=== PATIENT | female | born 1970 | race Caucasian/White ===

== ENCOUNTER 2016-09-07 14:10 | Emergency (ER) | payer OTHER ==
[2016-09-07 14:15] VITALS: BP 127/79; BMI 24.1
[2016-09-07 14:54] LABS: BILIRUBIN,URINE NEGATIVE (NEGATIVE); BLOOD/HEMOGLOBIN,URINE 3+ (NEGATIVE); GLUCOSE, URINE NEGATIVE (NEGATIVE); KETONES,URINE NEGATIVE (NEGATIVE); LEUKOCYTE ESTERASE ,URINE 1+ (NEGATIVE); NITRITES,URINE NEGATIVE (NEGATIVE); PROTEIN,URINE 1+ (NEGATIVE); UROBILINOGEN,URINE 1+ (NORMAL)
[2016-09-07] MEDS ORDERED: TORADOL 60 MG VIAL IM ONE (14:59)
[2016-09-07] MEDS ORDERED: PHENERGAN INJ 25 MG IM ONE (14:59)
--- NOTE | 2016-09-07 15:05 | DR.GENAD ---
HPI - PCP Primary Care Physician: alissa proctor - Complaint/Symptoms Chief Complaint Doctors Comments: Patient states she is having right CVA pain for the past two hours. States she has a history of kidney stones. SHe has blood in her urine but denies dysuria, lauren or vaginal bleeding. states she has had a hysterectory Chief Complaint:: patient has a history of kidney stones and she stated that her right flank has been hurting like a kidney stone. - Nurses notes reviewed Nurses Notes Review: Yes - Source History Provided: Patient - Mode of Arrival Mode of Arrival: Ambulatory - Timing Onset of Chief Complaint: 09/07/16 - Duration Duration: Constant How lon Duration: Hours - Location Location: right CVA pain - Severity Severity: Moderate, Severe - Modifying Factors Worsens:: movment Improves:: nothing PMH - PMH Past Medical History: Yes Past Medical History: Hypertension, Kidney Stones Past Surgical History: Yes Surgical History: Cholecystectomy, Hysterectomy, Lithotripsy - Family History History of Family Medical Conditions: Yes Family Medical History: [place], Coronary Artery Disease, Hypertension - Social History Does patient currently use any type of tobacco product: Yes Have you used tobacco products in the last 12 months: Yes Type of Tobacco Use: Cigarettes How many years tobacco product used: 13 Does any household member use tobacco: No Alcohol Use: Rarely Do you use any recreational Drugs:: No Lives With: Family Lives Where: Home - infectious screening In the last 2 months have you had wt loss of >10#?: NO Have you had fever, night sweats or hemotysis?: No Have you traveled outside the country in the last 6 months?: No Isolation: Standard ROS - Review of Systems Constitutional: No Symptoms Reported. negative: See HPI, Chills, Diaphoresis, Fever, Malaise, Weakness, Irritable, Fatigue, Loss of Appetite, Other Eyes: No Symptoms Reported ENTM: No Symptoms Reported Respiratoy: No Symptoms Reported. negative: See HPI, Productive Cough, Non- Productive Cough, Moist Cough, Dry Cough, Hacking Cough, Barking Cough, Brassy Cough, Orthopnea, Short of Breath, Stridor, Wheezing, Hemoptysis, Other Cardiovascular: No Symptoms Reported. negative: See HPI, Chest Pain, Edema, Palpitations, Syncope, Cyanosis, Skin Mottling, Other Gastrointestinal/Abdominal: Abdominal Pain, Nausea, Vomiting. negative: No Symptoms Reported, See HPI, Constipation, Diarrhea, Food Intolerance, Other Genitourinary: No Symptoms Reported, Hematuria, Pain. negative: See HPI, Discharge, Dysuria, Frequency, Bleeding, Other Neurological: No Symptoms Reported. negative: See HPI, Anxiety, Depressed, Emotional Problems, Headache, Numbness, Paresthesia, Pre-existing Deficit, Seizure, Tingling, Tremors, Weakness, Dizziness, Problems Walking, Speech Problem, Other Musculoskeletal: No Symptoms Reported Integumentary: No Symptoms Reported. negative: See HPI, Change in Color, Change in Hair/Nails, Dryness, Lesions, Lumps, Rash, Itching, Wound, Bruises, Juandice, Other Hematologic/Lymphatic: No Symptoms Reported Endocrine: No Symptoms Reported Psychiatric: No Symptoms Reported. negative: See HPI, Anxiety, Depression, Hallucinations, Excessive crying, Suicidal, Other PE - Vital Signs Vitals: Temperature 98.9 F Pulse Rate 74 Respiratory Rate 16 Blood Pressure [Left Arm] 126/79 Blood Pressure [Right Arm] 110/67 Blood Pressure 127/79 O2 Sat by Pulse Oximetry 100 - General Limitations: No Limitations General Appearance: Alert, In No Apparent Distress, In Distress (moderate) - Head Head Exam: Normal Inspection, Atraumatic, Normocephalic - Eyes Eye exam: Normal Appearance, PERRL, EOMI. negative: Scleral Icterus, Conjunctival Injection, Nystagmus, Miosis, Mydrasis, Periorbital Swelling, Periorbital Tenderness, Other - ENT ENT Exam: Normal Exam, Normal Oropharynx, Normal External Ear Exam, Mucous Membranes Moist, TM's Normal Bilaterally External Ear Exam: Normal External Inspection TM/Canal Exam: Bilateral Normal Nose Exam: Normal Nose Exam Mouth Exam: Normal Inspection Throat Exam: Normal Inspection - Neck Neck Exam: Normal Inspection, Full ROM, Trachea Midline. negative: Tenderness, Meningismus, Lymphadenopathy, Thyromegaly, Other - Chest Chest Inspection: Normal Inspection, Symmetric Chest Wall Rise - Respiratory Respiratory Exam: Normal Lung Sounds Bilat, Prolonged Expiratory Phase. negative: Accessory Muscle Use, Chest Wall Tenderness, Respiratory Distress, Stridor, Other Respiratory Exam: Bilateral Clear to Auscultation - Cardiovascular Cardiovascular Exam: Regular Rate, Normal Rhythm, Normal Heart Sounds. negative : Bradycardia, Tachycardia, Irregular Rhythm, Systolic Murmur, Diastolic Murmur , Rubs, Gallop, Clicks, JVD, +S1, +S2, +S3, +S4, Other - Abdominal Exam Abdominal Exam: Normal Inspection, Normal Bowel Sounds, Soft. negative: Distention, Tenderness, Guarding, Rebound, Rigidity, Dimnished Bowel Sounds, Hyperactive Bowel Sounds, Hypoactive Bowel Sounds, Organomegaly, Trauma, Incision, Ascites, Mass, Bruit, Pulsatile Mass, Hernia, Other Abdominal Tenderness: RUQ, Suprapubic, Moderate. negative: RLQ, LUQ, LLQ, Epigastrium, Diffuse, Mild, Severe, Other - Extremities Extremities Exam: Normal Inspection, Full ROM, Normal Capillary Refill. negative: Tenderness, Edema, Joint Swelling, Calf Tenderness, Other - Back Back Exam: Normal Inspection, Full ROM. negative: Tenderness, (R) CVA Tenderness, (L) CVA Tenderness, Muscle Spasm, Paraspinal Tenderness, Vertebral Tenderness, Rashes, (R) Sciatic Notch Tenderness, (L) Sciatic Notch Tendern, (R ) Straight Leg Raise, (L) Straight Leg Raise, Other - Neurologic Neurological Exam: Alert, Oriented X3, CN II-XII Intact, Normal Gait, Reflexes Normal - Psychiatric Psychiatric Exam: Normal Affect, Normal Mood - Skin Skin Exam: Warm, Dry, Normal Color. negative: Intact, Rash, Cyanosis, Diaphoresis, Erythema, Pallor, Mottled, Other ROR - Labs Reviewed Laboratory Results Reviewed?: Yes (all x-ray results reviewed and discussed with km) Laboratory: Specimen Type Clean catch urine 09/07/16 14:32 Urine Color Cindy (YELLOW) 09/07/16 14:32 Urine Appearance Clear (CLEAR) 09/07/16 14:32 Urine pH 6.0 (5.0 - 8.0) 09/07/16 14:32 Ur Specific [place] 1.025 (1.000-1.030) 09/07/16 14:32 Urine Protein 1+ (NEGATIVE) 09/07/16 14:32 Urine Glucose (UA) Negative (NEGATIVE) 09/07/16 14:32 Urine Ketones Negative (NEGATIVE) 09/07/16 14:32 Urine Occult Blood 3+ (NEGATIVE) 09/07/16 14:32 Urine Nitrite Negative (NEGATIVE) 09/07/16 14:32 Urine Bilirubin Negative (NEGATIVE) 09/07/16 14:32 Urine Urobilinogen 1+ (NORMAL) 09/07/16 14:32 Ur Leukocyte Esterase 1+ (NEGATIVE) 09/07/16 14:32 Urine RBC 10-15 /HPF (NEGATIVE) 09/07/16 14:32 Urine WBC 0-2 /HPF (NEGATIVE) 09/07/16 14:32 Ur Squamous Epith Cells Many /HPF (NEGATIVE) 09/07/16 14:32 Urine Bacteria Trace /HPF (NEGATIVE) 09/07/16 14:32 Urine Mucus Moderate /HPF (NEGATIVE) 09/07/16 14:32 Urine Yeast Few /HPF (NEGATIVE) 09/07/16 14:32 Ur Culture Indicated? No/not indicated 09/07/16 14:32 - XRAY XRAY Interpreted by: Radiologist (CT abdomen and pelvis: No evidence of kidney stone or hydronephrosis.) - Diagnosis Discharge Problem: History of kidney stones Abdominal pain Qualifiers: Abdominal location: right upper quadrant Qualified Code(s): R10.11 - Right upper quadrant pain Hematuria Qualifiers: Hematuria type: unspecified type Qualified Code(s): R31.9 - Hematuria, unspecified - Discharge Plan Disposition: HOME, SELF-CARE Condition: Stable Prescriptions: Ciprofloxacin HCl [CIPRO 500 MG TAB *] 500 mg PO Q12H #20 tab Ketorolac Tromethamine [Toradol Tab] 10 mg PO Q8H PRN #12 tab PRN Reason: Pain - Follow ups/Referrals Follow ups/Referrals: ALISSA PROCTOR [Primary Care Provider] - 3 days - Instructions Instructions: Kidney Stones, [id number], Hematuria, Adult, Abdominal Pain, Adult, [id number]
[2016-09-07] MEDS ORDERED: PHENERGAN INJ 25 MG ONE (15:07)
[2016-09-07] MEDS ORDERED: TORADOL 60 MG VIAL ONE (15:07)
[2016-09-07 15:20] LABS: APPEARANCE,URINE CLEAR (CLEAR); COLOR,URINE AMBER (YELLOW)
[2016-09-07 15:21] LABS: BACTERIA,URINE TRACE /HPF (NEGATIVE); MUCUS,URINE MODERATE /HPF (NEGATIVE); SQUAMOUS EPITHELIAL CELL,UR MANY /HPF (NEGATIVE); YEAST,URINE FEW /HPF (NEGATIVE)
--- NOTE | 2016-09-07 15:37 | CT ---
HISTORY: Right CVA pain, history of kidney stone Study: CT abdomen and pelvis without IV or oral contrast Comparison: June 15, 2016 Technique: Multiple axial images of the abdomen and pelvis were obtained from the lung bases to the pubic symph ysis without the administration of IV or oral contrast. Coronal and sagittal images are also review ed. Dose reduction techniques utilized automatic exposure control. Findings: The visualized portions of the lung bases are unremarkable. The liver, spleen, pancreas, kidneys, a nd adrenal glands are unremarkable in their CT appearance. The gallbladder is surgically absent. No evidence of kidney stone or hydronephrosis is seen.. No significant mesenteric lymphadenopathy or s tranding can be observed. No free fluid or free air is seen within the abdomen. No bowel wall thic kening or bowel dilatation is present. The appendix is normal. The colon is unremarkable. Specifica lly, there is no diverticulosis noted within the sigmoid colon. Uterus is surgically absent. No adne xal mass or free cul-de-sac fluid is seen. The urinary bladder is grossly unremarkable. there is de generative disc disease with disc space narrowing at L4-5 and L5-S1. There is a vacuum disc at L4-5 IMPRESSION: No evidence of kidney stone or hydronephrosis. Surgically absent gallbladder an uterus. Reported By:
== END 2016-09-07 16:53 | disposition home or self-care (01) ==
LOC: ER 14:19
DX: R10.11 Right upper quadrant pain (principal); R31.9 Hematuria, unspecified; Z87.442 Personal history of urinary calculi
CPT/HCPCS: 74176; 81001; 96372; 99283; J1885; J2550

== ENCOUNTER 2016-11-12 18:02 | Emergency (ER) | payer OTHER ==
[2016-11-12 18:07] VITALS: BP 109/78; BMI 24.1
[2016-11-12 21:06] LABS: BASOPHILS # (AUTO) 0.2 X10^3/uL (0.0-0.1); BASOPHILS % (AUTO) 1.3 % (0.2-1.0); EOSINOPHILS # (AUTO) 0.3 x10^3/uL (0.0-0.2); EOSINOPHILS % (AUTO) 2.7 % (0.9-2.9); HEMATOCRIT 45.3 % (36.0-47.0); HEMOGLOBIN 15.8 g/dL (12.0-16.0); LYMPHOCYTES # (AUTO) 4.6 X10^3/uL (1.3-2.9); LYMPHOCYTES % (AUTO) 37.6 % (21.0-51.0); MEAN CORPUSCULAR HEMOGLOBIN 29.8 pg (27.0-34.0); MEAN CORPUSCULAR HGB CONC 34.9 g/dL (33.0-35.0); MEAN CORPUSCULAR VOLUME 85.4 fL (80.0-100.0); MEAN PLATELET VOLUME 8.9 fL (7.4-11.0); MONOCYTES # (AUTO) 0.9 x10^3/uL (0.3-0.8); MONOCYTES % (AUTO) 7.4 % (0.0-13.0); NEUTROPHILS # (AUTO) 6.3 x10^3/uL (2.2-4.8); PLATELET COUNT 304 X10^3/uL (150.0-450.0); RED BLOOD COUNT 5.31 X10^6/uL (3.5-5.4); RED CELL DISTRIBUTION WIDTH 14.4 % (11.6-16.5); WHITE BLOOD COUNT 12.4 X10^3/uL (3.6-10.0)
[2016-11-12 21:10] LABS: BILIRUBIN,URINE NEGATIVE (NEGATIVE); BLOOD/HEMOGLOBIN,URINE 3+ (NEGATIVE); GLUCOSE, URINE NEGATIVE (NEGATIVE); KETONES,URINE 1+ (NEGATIVE); LEUKOCYTE ESTERASE ,URINE 1+ (NEGATIVE); NITRITES,URINE NEGATIVE (NEGATIVE); PROTEIN,URINE 1+ (NEGATIVE); UROBILINOGEN,URINE 1+ (NORMAL)
[2016-11-12 21:16] LABS: ALANINE AMINOTRANSFERASE 86 Units/L (12-78); ALBUMIN 3.9 g/dL (3.4-5.0); ALKALINE PHOSPHATASE 99 Units/L (46-116); ASPARTATE AMINO TRANSFERASE 39 Units/L (15-37); BLOOD UREA NITROGEN 11 mg/dL (7-18); CARBON DIOXIDE 29.1 mmol/L (21-32); CHLORIDE 102 mmol/L (98-107); CREATININE 0.72 mg/dL (0.55-1.02); SODIUM 139 mmol/L (136-145); TOTAL PROTEIN 7.7 g/dL (6.4-8.2); eGFR BLACK RACES > 60 (>60); eGFR NON BLACK RACES > 60 (>60)
[2016-11-12 21:18] LABS: APPEARANCE,URINE SLIGHTLY HAZY (CLEAR); BACTERIA,URINE TRACE /HPF (NEGATIVE); COLOR,URINE YELLOW (YELLOW); SQUAMOUS EPITHELIAL CELL,UR MANY /HPF (NEGATIVE)
--- NOTE | 2016-11-12 21:21 | DR.GENAD ---
HPI - PCP Primary Care Physician: ATA UNDERWOOD - HPI Comment HPI Comment: NO DYSURIA OR FEVER. TONIGHT PAIN SEVERE. HISTORY KIDNEY STONE. - Complaint/Symptoms Chief Complaint Doctors Comments: BACK PAIN, RIGHT FLANK PAIN TIMES Chief Complaint:: " RIGHT KIDNEY PAIN/KIDNEY STONES, BACK PAIN,THROWING UP, FEVER - Nurses notes reviewed Nurses Notes Review: Yes - Source History Provided: Patient - Mode of Arrival Mode of Arrival: Ambulatory - Timing Onset of Chief Complaint: 11/01/16 Came on: Suddenly - Duration Duration: Intermittent Duration: Days - Severity Severity: Moderate PMH - PMH Past Medical History: Yes Past Medical History: Anxiety, Hypertension, Kidney Stones Past Surgical History: Yes Surgical History: Cholecystectomy, Hysterectomy, Lithotripsy - Family History History of Family Medical Conditions: Yes Family Medical History: [place], Coronary Artery Disease, Hypertension - Social History Does patient currently use any type of tobacco product: Yes Have you used tobacco products in the last 12 months: Yes Type of Tobacco Use: Cigarettes How many years tobacco product used: 15 Does any household member use tobacco: No Alcohol Use: None Do you use any recreational Drugs:: No Lives With: Family Lives Where: Home - infectious screening In the last 2 months have you had wt loss of >10#?: NO Have you had fever, night sweats or hemotysis?: No Have you traveled outside the country in the last 6 months?: No Isolation: Standard ROS - Review of Systems Constitutional: No Symptoms Reported Eyes: No Symptoms Reported ENTM: No Symptoms Reported Respiratoy: No Symptoms Reported Cardiovascular: No Symptoms Reported Gastrointestinal/Abdominal: No Symptoms Reported Genitourinary: Hematuria. negative: Dysuria, Frequency Neurological: No Symptoms Reported Musculoskeletal: Back Pain, Back Integumentary: No Symptoms Reported, Other (RT FLANK PAIN.) Hematologic/Lymphatic: No Symptoms Reported Endocrine: No Symptoms Reported All Other Systems: Reviewed and Negative PE - Vital Signs Vitals: Temperature 98.1 F Pulse Rate 89 Respiratory Rate 18 Blood Pressure [Left Arm] 126/79 Blood Pressure [Right Arm] 110/67 Blood Pressure 109/78 O2 Sat by Pulse Oximetry 100 - General Limitations: No Limitations General Appearance: Alert - Head Head Exam: Normal Inspection - Eyes Eye exam: Normal Appearance - ENT ENT Exam: Normal External Ear Exam External Ear Exam: Normal External Inspection TM/Canal Exam: Bilateral Normal Nose Exam: Normal Nose Exam Mouth Exam: Normal Inspection Throat Exam: Normal Inspection - Neck Neck Exam: Trachea Midline - Chest Chest Inspection: Symmetric Chest Wall Rise - Respiratory Respiratory Exam: Normal Lung Sounds Bilat Respiratory Exam: Bilateral Clear to Auscultation - Cardiovascular Cardiovascular Exam: Regular Rate, Normal Rhythm, Normal Heart Sounds - Abdominal Exam Abdominal Exam: Normal Bowel Sounds, Soft, Tenderness Abdominal Tenderness: RUQ, RLQ, Moderate - Extremities Extremities Exam: Normal Inspection - Back Back Exam: (R) CVA Tenderness - Neurologic Neurological Exam: Alert, Oriented X3 - Psychiatric Psychiatric Exam: Anxious - Skin Skin Exam: Normal Color MDM - Additional Information Additional Information Obtained From: Family - Differential Diagnosis Differential Diagnosis: RIGHT SIDED ABDOMINAL PAIN, BACK PAIN, RIGHT FLANK PAIN Course - Treatment Treatment: SEE ORDERS - Education/Counseling Education/Counseling: Patient, Family, Education Educated On: Treatment, Diagnosis, Needs for Follow Up ROR - Labs Reviewed Laboratory Results Reviewed?: Yes Result Diagrams: 11/12/16 20:57 11/12/16 20:57 Laboratory: WBC 12.4 X10^3/uL (3.6-10.0) H 11/12/16 20:57 RBC 5.31 X10^6/uL (3.5-5.4) 11/12/16 20:57 Hgb 15.8 g/dL (12.0-16.0) 11/12/16 20:57 Hct 45.3 % (36.0-47.0) 11/12/16 20:57 MCV 85.4 fL (80.0-100.0) 11/12/16 20:57 MCH 29.8 pg (27.0-34.0) 11/12/16 20:57 MCHC 34.9 g/dL (33.0-35.0) 11/12/16 20:57 RDW 14.4 % (11.6-16.5) 11/12/16 20:57 Plt Count 304 X10^3/uL (150.0-450.0) 11/12/16 20:57 MPV 8.9 fL (7.4-11.0) 11/12/16 20:57 Neut % 51.0 % (42.0-75.0) 11/12/16 20:57 Lymph % 37.6 % (21.0-51.0) 11/12/16 20:57 [place] % 7.4 % (0.0-13.0) 11/12/16 20:57 Eos % 2.7 % (0.9-2.9) 11/12/16 20:57 Baso % 1.3 % (0.2-1.0) H 11/12/16 20:57 Neut # 6.3 x10^3/uL (2.2-4.8) H 11/12/16 20:57 Lymph # 4.6 X10^3/uL (1.3-2.9) H 11/12/16 20:57 [place] # 0.9 x10^3/uL (0.3-0.8) H 11/12/16 20:57 Eos # 0.3 x10^3/uL (0.0-0.2) H 11/12/16 20:57 Baso # 0.2 X10^3/uL (0.0-0.1) H 11/12/16 20:57 Absolute Nucleated RBC 0.1 /100WBC 11/12/16 20:57 Sodium 139 mmol/L (136-145) 11/12/16 20:57 Corrected Sodium TNP 11/12/16 20:57 Potassium 3.9 mmol/L (3.5-5.1) 11/12/16 20:57 Chloride 102 mmol/L (98-107) 11/12/16 20:57 Carbon Dioxide 29.1 mmol/L (21-32) 11/12/16 20:57 BUN 11 mg/dL (7-18) 11/12/16 20:57 Creatinine 0.72 mg/dL (0.55-1.02) 11/12/16 20:57 Est GFR (MDRD) Af Amer > 60 (>60) 11/12/16 20:57 Est GFR (MDRD) Non-Af > 60 (>60) 11/12/16 20:57 Glucose 95 mg/dL (65-99) 11/12/16 20:57 Calcium 10.0 mg/dL (8.5-10.1) 11/12/16 20:57 Corrected Calcium TNP 11/12/16 20:57 Total Bilirubin 0.30 mg/dL (0.2-1.0) 11/12/16 20:57 AST 39 Units/L (15-37) H 11/12/16 20:57 ALT 86 Units/L (12-78) H 11/12/16 20:57 Alkaline Phosphatase 99 Units/L (46-116) 11/12/16 20:57 Total Protein 7.7 g/dL (6.4-8.2) 11/12/16 20:57 Albumin 3.9 g/dL (3.4-5.0) 11/12/16 20:57 Globulin 3.8 g/dL (2.5-4.5) 11/12/16 20:57 Albumin/Globulin Ratio 1.0 Ratio (1.1-2.1) L 11/12/16 20:57 Specimen Type Clean catch urine 11/12/16 20:48 Urine Color Yellow (YELLOW) 11/12/16 20:48 Urine Appearance Slightly hazy (CLEAR) 11/12/16 20:48 Urine pH 5.0 (5.0 - 8.0) 11/12/16 20:48 Ur Specific [place] 1.025 (1.000-1.030) 11/12/16 20:48 Urine Protein 1+ (NEGATIVE) 11/12/16 20:48 Urine Glucose (UA) Negative (NEGATIVE) 11/12/16 20:48 Urine Ketones 1+ (NEGATIVE) 11/12/16 20:48 Urine Occult Blood 3+ (NEGATIVE) 11/12/16 20:48 Urine Nitrite Negative (NEGATIVE) 11/12/16 20:48 Urine Bilirubin Negative (NEGATIVE) 11/12/16 20:48 Urine Urobilinogen 1+ (NORMAL) 11/12/16 20:48 Ur Leukocyte Esterase 1+ (NEGATIVE) 11/12/16 20:48 Urine RBC 5-10 /HPF (NEGATIVE) 11/12/16 20:48 Urine WBC 0-3 /HPF (NEGATIVE) 11/12/16 20:48 Ur Squamous Epith Cells Many /HPF (NEGATIVE) 11/12/16 20:48 Urine Bacteria Trace /HPF (NEGATIVE) 11/12/16 20:48 Ur Culture Indicated? No/not indicated 11/12/16 20:48 - XRAY XRAY Interpreted by: Radiologist XRAY Findings: REPORT DISCUSS WITH PATIENT. - Diagnosis Discharge Problem: Right flank pain Chronic lower back pain Qualifiers: Back pain laterality: right Sciatica presence: without sciatica Qualified Code( s): M54.5 - Low back pain; G89.29 - Other chronic pain Abdominal pain Qualifiers: Abdominal location: right upper quadrant Qualified Code(s): R10.11 - Right upper quadrant pain - Discharge Plan Disposition: 01 HOME, SELF-CARE Condition: Stable Prescriptions: Ketorolac Tromethamine [Toradol Tab] 10 mg PO TID #15 tab Tramadol HCl 50 mg PO TID #15 tablet - Follow ups/Referrals Follow ups/Referrals: ATA UNDERWOOD [Primary Care Provider] - 3 days - Instructions Instructions: Back Pain, Adult, [id number] Additional Instructions: RETURN TO ED IF WORSE. YOU ALSO HAVE RIGHT FLANK PAIN.
[2016-11-12] MEDS ORDERED: NS 1000 ML 1,000 ML IV ONE (21:23)
[2016-11-12] MEDS ORDERED: TORADOL 30 MG VIAL IVP ONE (21:24)
[2016-11-12] MEDS ORDERED: NS 1000 ML 1,000 ML ONE (21:30)
[2016-11-12] MEDS ORDERED: TORADOL 30 MG VIAL ONE (21:30)
[2016-11-12] MEDS ORDERED: ZOFRAN INJ 4 MG VIAL IVP ONE (21:34)
[2016-11-12] MEDS ORDERED: ZOFRAN INJ 4 MG VIAL ONE (21:35)
[2016-11-12] MEDS ORDERED: DEMEROL INJ IVP ONE (22:22)
--- NOTE | 2016-11-12 22:44 | CT ---
CT abdomen and pelvis without contrast Indication: Back and right flank pain. History of renal stones Comparison: 09/07/2016 Technique: CT images of the abdomen and pelvis were obtained without contrast. Automatic exposure control was utilized. Findings: No acute skeletal abnormality. The lung bases are clear. Previous cholecystectomy is noted. Within noncontrast limitations, the liver, spleen, stomach, duoden um, pancreas, and kidneys demonstrate no acute abnormality. There is a small hiatal hernia the stomac h. There is a stable tiny (1-2 mm) left upper pole renal stone, best seen on the coronal images. No r ight-sided nephrolithiasis. No hydronephrosis. No ureteral stone identified bilaterally. No bowel thi ckening or dilatation of the lower GI tract. The appendix appears normal. Urinary bladder is mostly c ollapsed, but grossly unremarkable. The uterus is absent. No free fluid or adenopathy. There is mild aortoiliac atherosclerosis, without aneurysm. Impression: No etiology for patient's symptoms. Stable tiny nonobstructing left upper pole renal stone. Small hiatal hernia. Reported By:
[2016-11-12] MEDS ORDERED: DEMEROL INJ ONE (22:50)
== END 2016-11-12 23:51 | disposition home or self-care (01) ==
LOC: ER 18:12
DX: R10.11 Right upper quadrant pain (principal); M54.5 Low back pain; G89.29 Other chronic pain; K44.9 Diaphragmatic hernia without obstruction or gangrene
CPT/HCPCS: 36415; 74176; 80053; 81001; 85025; 96365; 96367; 96374; 96375; 99283; A4222; J1885; J2175; J2405

== ENCOUNTER 2017-01-02 23:15 | Emergency (ER) | payer OTHER ==
[2017-01-02 23:29] VITALS: BP 110/70; BMI 26.8
[2017-01-02 23:42] LABS: BILIRUBIN,URINE NEGATIVE (NEGATIVE); BLOOD/HEMOGLOBIN,URINE 5+ (NEGATIVE); GLUCOSE, URINE NEGATIVE (NEGATIVE); KETONES,URINE NEGATIVE (NEGATIVE); LEUKOCYTE ESTERASE ,URINE 1+ (NEGATIVE); NITRITES,URINE NEGATIVE (NEGATIVE); PROTEIN,URINE NEGATIVE (NEGATIVE); UROBILINOGEN,URINE NORMAL (NORMAL)
[2017-01-02 23:53] LABS: APPEARANCE,URINE CLEAR (CLEAR); BACTERIA,URINE NEGATIVE /HPF (NEGATIVE); COLOR,URINE YELLOW (YELLOW); SQUAMOUS EPITHELIAL CELL,UR RARE /HPF (NEGATIVE)
[2017-01-02] MEDS ORDERED: TORADOL 30 MG VIAL IVP ONE (23:59)
[2017-01-03] MEDS ORDERED: NS 1000 ML 1,000 ML ONE (00:01)
[2017-01-03] MEDS ORDERED: TORADOL 30 MG VIAL ONE (00:01)
[2017-01-03] MEDS ORDERED: ZOFRAN INJ 4 MG VIAL ONE (00:01)
[2017-01-03] MEDS ORDERED: ZOFRAN INJ 4 MG VIAL IVP ONE (00:02)
--- NOTE | 2017-01-03 00:02 | DR.GENAD ---
HPI - Complaint/Symptoms Chief Complaint:: PT C/O RT AND LT FLANK PAIN AND BLOODY URINE. ONSET THIS AFTERNOON. PT STATES THAT SHE GETS KIDNEY STONES ONCE A MONTH AND COMES HERE FOR THEM - Source History Provided: Patient - Mode of Arrival Mode of Arrival: Stretcher - Timing Onset of Chief Complaint: 01/02/17 PMH - PMH Past Medical History: Yes Past Medical History: Anxiety, Hypertension, Kidney Stones Past Surgical History: Yes Surgical History: Cholecystectomy, Hysterectomy, Lithotripsy - Family History History of Family Medical Conditions: Yes Family Medical History: [place], Coronary Artery Disease, Hypertension - Social History Do you use any recreational Drugs:: No - infectious screening Have you traveled outside the country in the last 6 months?: No ROS - Review of Systems Eyes: No Symptoms Reported ENTM: No Symptoms Reported Respiratoy: No Symptoms Reported Cardiovascular: No Symptoms Reported Gastrointestinal/Abdominal: No Symptoms Reported Genitourinary: No Symptoms Reported Neurological: No Symptoms Reported Musculoskeletal: No Symptoms Reported Integumentary: No Symptoms Reported Hematologic/Lymphatic: No Symptoms Reported Endocrine: No Symptoms Reported Psychiatric: No Symptoms Reported All Other Systems: Reviewed and Negative PE - Vital Signs Vitals: Temperature 98.2 F Pulse Rate 58 Respiratory Rate 18 Blood Pressure [Left Arm] 126/79 Blood Pressure [Right Arm] 110/67 Blood Pressure 110/70 O2 Sat by Pulse Oximetry 98 - General Limitations: No Limitations General Appearance: Alert, In No Apparent Distress - Head Head Exam: Normal Inspection, Atraumatic - Eyes Eye exam: Normal Appearance, PERRL, EOMI - ENT ENT Exam: Normal Exam External Ear Exam: Normal External Inspection TM/Canal Exam: Bilateral Normal Nose Exam: Normal Nose Exam, Sinus Tenderness Mouth Exam: Normal Inspection Throat Exam: Normal Inspection - Neck Neck Exam: Normal Inspection, Full ROM - Chest Chest Inspection: Normal Inspection, Symmetric Chest Wall Rise - Respiratory Respiratory Exam: Normal Lung Sounds Bilat Respiratory Exam: Bilateral Clear to Auscultation - Cardiovascular Cardiovascular Exam: Regular Rate, Normal Rhythm - Abdominal Exam Abdominal Exam: Normal Inspection, Normal Bowel Sounds - Extremities Extremities Exam: Tenderness - Back Back Exam: (R) CVA Tenderness, (L) CVA Tenderness - Neurologic Neurological Exam: Oriented X3, CN II-XII Intact - Skin Skin Exam: Warm, Dry, Intact Course - Reevaluation 1st: Improved - Education/Counseling Education/Counseling: Patient, Counseling Educated On: Treatment, Diagnosis, Prognosis, Needs for Follow Up ROR - Labs Reviewed Laboratory: Specimen Type Clean catch urine 01/02/17: Urine Color Yellow (YELLOW) 01/02/17: Urine Appearance Clear (CLEAR) 01/02/17: Urine pH 8.0 (5.0 - 8.0) 01/02/17 23: Ur Specific [place] 1.015 (1.000-1.030) 01/02/17: Urine Protein Negative (NEGATIVE) 01/02/17: Urine Glucose (UA) Negative (NEGATIVE) 01/02/17: Urine Ketones Negative (NEGATIVE) 01/02/17: Urine Occult Blood 5+ (NEGATIVE) 01/02/17: Urine Nitrite Negative (NEGATIVE) 01/02/17: Urine Bilirubin Negative (NEGATIVE) 01/02/17: Urine Urobilinogen Normal (NORMAL) 01/02/17: Ur Leukocyte Esterase 1+ (NEGATIVE) 01/02/17: Urine RBC 8-12 /HPF (NEGATIVE) 01/02/17: Urine WBC 0-3 /HPF (NEGATIVE) 01/02/17: Ur Squamous Epith Cells Rare /HPF (NEGATIVE) 01/02/17: Urine Bacteria Negative /HPF (NEGATIVE) 01/02/17 Ur Culture Indicated? No/not indicated 01/02/17 23: - XRAY XRAY Interpreted by: Radiologist (Abd/Pel: The liver, spleen, pancreas, adrenal glands stomach and small bowel are within normal limits. The colon and appendix are normal. Vascular palque noted. kidneys show no hydroureteronephrosis. Tiny punctate left upper pole renal stone noted. Gallbladder is absent. Urinary bladder, rectum and adnexal regions are normal. Uterus is absent. Impression No acute abnormality. Stable nonobstructing left upper pole renal stone.) - Diagnosis Discharge Problem: Renal calculus, left - Discharge Plan Condition: Stable - Follow ups/Referrals Follow ups/Referrals: ATA UNDERWOOD [Primary Care Provider] - 3 days - Instructions
[2017-01-03] MEDS ORDERED: MORPHINE SULFATE INJ 4 MG IVP ONE (00:18)
[2017-01-03] MEDS ORDERED: MORPHINE SULFATE INJ 4 MG ONE (00:20)
[2017-01-03] MEDS ORDERED: NS 1000 ML 1,000 ML IV SCH (01:00)
--- NOTE | 2017-01-03 01:08 | CT ---
CT abdomen and pelvis without contrast Indication: Bilateral flank pain and hematuria Comparison: 11/12/2016 CT Technique: Helical images through the abdomen and pelvis without contrast. Coronal and sagittal refor mats provided. Findings: Limited images through the lower chest show no acute abnormality. Review of bone windows sh ows no osseous lesion. Abdomen: The liver, spleen, pancreas, adrenal glands, stomach and small bowel are within normal limit s. The colon and appendix are normal. Vascular plaque noted. Kidneys show no hydroureteronephrosis. T iny punctate left upper pole renal stone noted. Gallbladder is absent. Pelvis: Urinary bladder, rectum and adnexal regions are normal. Uterus is absent. Impression: No acute abnormality. Stable nonobstructing left upper pole renal stone. Reported By:
== END 2017-01-03 01:30 | disposition home or self-care (01) ==
LOC: ER 23:28
DX: N20.0 Calculus of kidney (principal)
CPT/HCPCS: 74176; 81001; 96365; 96374; 96375; 99283; J1885; J2270; J2405

== ENCOUNTER 2017-01-04 20:16 | Emergency (ER) | payer OTHER ==
[2017-01-04 20:32] VITALS: BMI 27.3
[2017-01-04] MEDS ORDERED: TORADOL 60 MG VIAL IM ONE (22:28)
--- NOTE | 2017-01-04 22:28 | DR.GENAD ---
HPI - PCP Primary Care Physician: alissa proctor - Complaint/Symptoms Chief Complaint Doctors Comments: Patient states she was diagnosed with kidney stone few days ago and is Tylenol #3 and Flomax but is hurting in both side; pelvic area with pain in vaginal area getting worst today. States she has bee taking the pain medicines but the pain has gotten worst. states the pain is 10 of 10. States she is a patient of Alissa Proctor and he told her to come back to the emergency room. She has an appointment with a urologist next week. states she has been having hematuria but denies fever, chills, or any recent tauma. Chief Complaint:: kidney stones dx yesterday 01/03/17. pain worse today and "Dr.Greg Del Toro told me to come back to er." Self Treatment fo Chief Complaint: tylenol #3, tamsulosin 0.4mg - Nurses notes reviewed Nurses Notes Review: Yes - Source History Provided: Patient - Mode of Arrival Mode of Arrival: Ambulatory - Timing Onset of Chief Complaint: 01/02/17 Came on: Gradually - Duration Duration: Constant How lon Duration: Days - Location Location: lower back and lower pelvic pain - Severity Severity: Moderate - Modifying Factors Worsens:: movement and standing Improves:: nothing PMH - PMH Past Medical History: Yes Past Medical History: Anxiety, Migraines, Headaches, Hypertension, Kidney Stones Past Surgical History: Yes Surgical History: Cholecystectomy, PAPERBOARD MACHINE OPERATOR Surgery, Hysterectomy, Lithotripsy - Family History History of Family Medical Conditions: Yes Family Medical History: Diabetes Mellitus, Cancer, [place], Coronary Artery Disease, Heart Failure, Sudden Cardiac , Hypertension - Social History Does patient currently use any type of tobacco product: Yes Have you used tobacco products in the last 12 months: Yes Type of Tobacco Use: Cigarettes How many years tobacco product used: 15 Does any household member use tobacco: Yes Alcohol Use: None Do you use any recreational Drugs:: No Lives With: Spouse Lives Where: Home - infectious screening In the last 2 months have you had wt loss of >10#?: NO Have you had fever, night sweats or hemotysis?: No Have you traveled outside the country in the last 6 months?: No Isolation: Standard ROS - Review of Systems Constitutional: No Symptoms Reported. negative: See HPI, Chills, Diaphoresis, Fever, Malaise, Weakness, Irritable, Fatigue, Loss of Appetite, Other Eyes: No Symptoms Reported ENTM: No Symptoms Reported. negative: See HPI, Ear Pain, Ear Discharge, Pulling on Ears, Hearing Loss, Nose Pain, Nose Discharge, Epistaxis, Nose Congestion, Mouth Pain, Mouth Swelling, Loose Teeth, Drooling, Throat Pain, Throat Swelling, Ear Foreign Body Respiratoy: No Symptoms Reported. negative: See HPI, Productive Cough, Non- Productive Cough, Moist Cough, Dry Cough, Hacking Cough, Barking Cough, Brassy Cough, Orthopnea, Short of Breath, Stridor, Wheezing, Hemoptysis, Other Cardiovascular: No Symptoms Reported. negative: See HPI, Chest Pain, Edema, Palpitations, Syncope, Cyanosis, Skin Mottling, Other Gastrointestinal/Abdominal: No Symptoms Reported, Abdominal Pain, Nausea, Vomiting. negative: See HPI, Constipation, Diarrhea, Food Intolerance, Other Genitourinary: No Symptoms Reported, Frequency, Hematuria. negative: See HPI, Discharge, Dysuria, Pain, Bleeding, Other Neurological: No Symptoms Reported Musculoskeletal: No Symptoms Reported, Back Integumentary: No Symptoms Reported. negative: See HPI, Change in Color, Change in Hair/Nails, Dryness, Lesions, Lumps, Rash, Itching, Wound, Bruises, Juandice, Other Hematologic/Lymphatic: No Symptoms Reported Endocrine: No Symptoms Reported Psychiatric: No Symptoms Reported. negative: See HPI, Anxiety, Depression, Hallucinations, Excessive crying, Suicidal, Other PE - Vital Signs Vitals: Temperature 97.7 F Pulse Rate 64 Respiratory Rate 20 Blood Pressure [Left Arm] 126/79 Blood Pressure [Right Arm] 110/67 Blood Pressure 118/78 O2 Sat by Pulse Oximetry 100 - General Limitations: No Limitations General Appearance: Alert, In Distress (moderate) - Head Head Exam: Normal Inspection, Atraumatic, Normocephalic - Eyes Eye exam: Normal Appearance, PERRL, EOMI. negative: Scleral Icterus, Conjunctival Injection, Nystagmus, Miosis, Mydrasis, Periorbital Swelling, Periorbital Tenderness, Other - ENT ENT Exam: Normal Exam, Normal Oropharynx, Normal External Ear Exam, Mucous Membranes Moist, TM's Normal Bilaterally External Ear Exam: Normal External Inspection TM/Canal Exam: Bilateral Normal Nose Exam: Normal Nose Exam Mouth Exam: Normal Inspection Throat Exam: Normal Inspection - Neck Neck Exam: Normal Inspection, Full ROM, Trachea Midline - Chest Chest Inspection: Normal Inspection, Symmetric Chest Wall Rise - Respiratory Respiratory Exam: Normal Lung Sounds Bilat Respiratory Exam: Bilateral Clear to Auscultation - Cardiovascular Cardiovascular Exam: Regular Rate, Normal Rhythm, Normal Heart Sounds - Abdominal Exam Abdominal Exam: Normal Inspection, Normal Bowel Sounds, Soft, Tenderness ( suprapubic and LUQ tenderness) Abdominal Tenderness: LUQ, Suprapubic, Moderate - Extremities Extremities Exam: Normal Inspection, Full ROM, Normal Capillary Refill. negative: Tenderness, Edema, Joint Swelling, Calf Tenderness, Other - Back Back Exam: Normal Inspection, Full ROM, (L) CVA Tenderness - Neurologic Neurological Exam: Alert, Oriented X3, CN II-XII Intact, Normal Gait, Reflexes Normal - Psychiatric Psychiatric Exam: Normal Affect, Normal Mood, Agitated - Skin Skin Exam: Warm, Dry, Intact, Normal Color ROR - Labs Reviewed Laboratory Results Reviewed?: Yes (all labs and x-ray results reviewed and discussed with patient) Laboratory: Specimen Type Clean catch urine 01/04/17 22:46 Urine Color Yellow (YELLOW) 01/04/17 22:46 Urine Appearance Clear (CLEAR) 01/04/17 22:46 Urine pH 6.0 (5.0 - 8.0) 01/04/17 22:46 Ur Specific [place] 1.020 (1.000-1.030) 01/04/17 22:46 Urine Protein Negative (NEGATIVE) 01/04/17 22:46 Urine Glucose (UA) Negative (NEGATIVE) 01/04/17 22:46 Urine Ketones Negative (NEGATIVE) 01/04/17 22:46 Urine Occult Blood 1+ (NEGATIVE) 01/04/17 22:46 Urine Nitrite Negative (NEGATIVE) 01/04/17 22:46 Urine Bilirubin Negative (NEGATIVE) 01/04/17 22:46 Urine Urobilinogen Normal (NORMAL) 01/04/17 22:46 Ur Leukocyte Esterase 1+ (NEGATIVE) 01/04/17 22:46 Urine RBC 0-3 /HPF (NEGATIVE) 01/04/17 22:46 Urine WBC 0-3 /HPF (NEGATIVE) 01/04/17 22:46 Ur Squamous Epith Cells Few /HPF (NEGATIVE) 01/04/17 22:46 Urine Bacteria Trace /HPF (NEGATIVE) 01/04/17 22:46 Ur Culture Indicated? No/not indicated 01/04/17 22:46 Urine Opiates Screen Positive (NEG=<300) A 01/04/17 22:46 Urine Methadone Screen Negative (NEG=<300) 01/04/17 22:46 Ur Barbiturates Screen Negative (NEG=<200) 01/04/17 22:46 Ur Phencyclidine Scrn Negative (NEG=<25) 01/04/17 22:46 Ur Amphetamines Screen Negative (NEG=<1000) 01/04/17 22:46 U Benzodiazepines Scrn Positive (NEG=<200) A 01/04/17 22:46 Urine Cocaine Screen Negative (NEG=<300) 01/04/17 22:46 U Marijuana (THC) Screen Negative (NEG=<50) 01/04/17 22:46 - XRAY XRAY Interpreted by: Radiologist (CT abdomen: No acute abnormality. Stable nonobstructing left upper pole renal stone) - Diagnosis Discharge Problem: Abdominal pain, Renal calculus, left, Renal stone - Discharge Plan Disposition: HOME, SELF-CARE Condition: Stable Prescriptions: Ketorolac Tromethamine 10 mg PO Q6HR PRN #10 tablet PRN Reason: Promethazine HCl [PHENERGAN TAB 25 MG *] 25 mg PO Q8H PRN #12 tab PRN Reason: Nausea/Vomiting - Follow ups/Referrals Follow ups/Referrals: ALISSA PROCTOR [Primary Care Provider] - 3 days - Instructions Instructions: Renal Colic, [id number], Kidney Stones, [id number], Abdominal Pain, Adult, [id number]
[2017-01-04] MEDS ORDERED: PHENERGAN INJ 25 MG IM ONE (22:29)
[2017-01-04] MEDS ORDERED: TORADOL 60 MG VIAL ONE (22:32)
[2017-01-04] MEDS ORDERED: PHENERGAN INJ 25 MG ONE (22:33)
[2017-01-04 23:10] LABS: BILIRUBIN,URINE NEGATIVE (NEGATIVE); BLOOD/HEMOGLOBIN,URINE 1+ (NEGATIVE); GLUCOSE, URINE NEGATIVE (NEGATIVE); KETONES,URINE NEGATIVE (NEGATIVE); LEUKOCYTE ESTERASE ,URINE 1+ (NEGATIVE); NITRITES,URINE NEGATIVE (NEGATIVE); PROTEIN,URINE NEGATIVE (NEGATIVE); UROBILINOGEN,URINE NORMAL (NORMAL)
[2017-01-04 23:29] LABS: APPEARANCE,URINE CLEAR (CLEAR); COLOR,URINE YELLOW (YELLOW)
[2017-01-04 23:30] LABS: BACTERIA,URINE TRACE /HPF (NEGATIVE); RBC,URINE 0-3 /HPF (NEGATIVE); SQUAMOUS EPITHELIAL CELL,UR FEW /HPF (NEGATIVE)
[2017-01-05 00:11] VITALS: BP 120/77
== END 2017-01-04 23:54 | disposition home or self-care (01) ==
LOC: ER 20:16
DX: N20.0 Calculus of kidney (principal); R10.12 Left upper quadrant pain
CPT/HCPCS: 80307; 81001; 96372; 99282; 99283; G0434; J1885; J2550

== ENCOUNTER 2017-02-04 01:00 | Emergency (ER) | payer OTHER ==
[2017-02-04 01:09] VITALS: BMI 27.6
--- NOTE | 2017-02-04 01:18 | DR.GENAD ---
HPI - PCP Primary Care Physician: hitesh - HPI Comment HPI Comment: HISTORY BELOW. - Complaint/Symptoms Chief Complaint Doctors Comments: DECREASE URINATION, LOWER BACK AND FLANK PAIN AND HEMATURIA THAT IS WORSE TONIGHT. RECENT CT INDICATE RENAL CALCULI WITHIN RENAL PELVIS. PATIENT AGUSTINA THIS STONE IS MOVING AND OBSTRUCTED HER URINATIONM. NO FVER. Chief Complaint:: pt states" i can't pee and i'm wiping blood i've had a hysterectomy so i know it's coming from my kidneys. danielle had kidney stones several times and it feels like that now" - Nurses notes reviewed Nurses Notes Review: Yes - Source History Provided: Patient - Mode of Arrival Mode of Arrival: Ambulatory - Timing Onset of Chief Complaint: 02/03/17 Came on: Suddenly - Duration Duration: Constant Duration: Hours - Severity Severity: Moderate PMH - PMH Past Medical History: Yes Past Medical History: Anxiety, Migraines, Headaches, Hypertension, Kidney Stones Past Surgical History: Yes Surgical History: Cholecystectomy, SUPERVISOR BUILDING MAINTENANCE Surgery, Hysterectomy, Lithotripsy - Family History History of Family Medical Conditions: Yes Family Medical History: Diabetes Mellitus, Cancer, [place], Coronary Artery Disease, Heart Failure, Sudden Cardiac , Hypertension - Social History Do you use any recreational Drugs:: No Lives With: Family Lives Where: Home - infectious screening In the last 2 months have you had wt loss of >10#?: NO Have you had fever, night sweats or hemotysis?: No Have you traveled outside the country in the last 6 months?: No Isolation: Standard ROS - Review of Systems Constitutional: No Symptoms Reported Eyes: No Symptoms Reported ENTM: No Symptoms Reported Respiratoy: No Symptoms Reported Cardiovascular: No Symptoms Reported Gastrointestinal/Abdominal: No Symptoms Reported Genitourinary: No Symptoms Reported Neurological: No Symptoms Reported Musculoskeletal: No Symptoms Reported, Back Pain, Right, Left, Back Integumentary: No Symptoms Reported Hematologic/Lymphatic: No Symptoms Reported Endocrine: No Symptoms Reported All Other Systems: Reviewed and Negative PE - Vital Signs Vitals: Temperature 98.1 F Pulse Rate [Right] 79 Pulse Rate 83 Respiratory Rate 16 Blood Pressure [Left Arm] 121/63 Blood Pressure [Right Arm] 120/77 Blood Pressure 120/77 O2 Sat by Pulse Oximetry 99 - General Limitations: No Limitations General Appearance: Alert - Head Head Exam: Normal Inspection - Eyes Eye exam: Normal Appearance - ENT ENT Exam: Normal External Ear Exam External Ear Exam: Normal External Inspection Nose Exam: Normal Nose Exam Mouth Exam: Normal Inspection Throat Exam: Normal Inspection - Neck Neck Exam: Trachea Midline - Chest Chest Inspection: Symmetric Chest Wall Rise - Respiratory Respiratory Exam: Normal Lung Sounds Bilat Respiratory Exam: Bilateral Clear to Auscultation - Cardiovascular Cardiovascular Exam: Regular Rate, Normal Rhythm, Normal Heart Sounds - Abdominal Exam Abdominal Exam: Normal Bowel Sounds, Soft. negative: Tenderness - Extremities Extremities Exam: Normal Inspection - Back Back Exam: (R) CVA Tenderness, Paraspinal Tenderness - Neurologic Neurological Exam: Alert, Oriented X3 - Psychiatric Psychiatric Exam: Normal Affect, Normal Mood - Skin Skin Exam: Normal Color MDM - Differential Diagnosis Differential Diagnosis: BACK PAIN, FLOANK PAIN, URINARY RETENSION, UTI Course - Treatment Treatment: SEE ORDERS - Education/Counseling Education/Counseling: Patient, Education Educated On: Treatment, Diagnosis, Needs for Follow Up ROR - Labs Reviewed Laboratory Results Reviewed?: Yes Result Diagrams: 02/04/17 02:18 02/04/17 02:18 Laboratory: WBC 16.6 X10^3/uL (3.6-10.0) H 02/04/17 02:18 RBC 4.56 X10^6/uL (3.5-5.4) 02/04/17 02:18 Hgb 13.8 g/dL (12.0-16.0) 02/04/17 02:18 Hct 39.7 % (36.0-47.0) 02/04/17 02:18 MCV 87.1 fL (80.0-100.0) 02/04/17 02:18 MCH 30.2 pg (27.0-34.0) 02/04/17 02:18 MCHC 34.7 g/dL (33.0-35.0) 02/04/17 02:18 RDW 13.4 % (11.6-16.5) 02/04/17 02:18 Plt Count 288 X10^3/uL (150.0-450.0) 02/04/17 02:18 MPV 9.0 fL (7.4-11.0) 02/04/17 02:18 Neut % 63.8 % (42.0-75.0) 02/04/17 02:18 Lymph % 27.9 % (21.0-51.0) 02/04/17 02:18 [place] % 4.7 % (0.0-13.0) 02/04/17 02:18 Eos % 2.7 % (0.9-2.9) 02/04/17 02:18 Baso % 0.9 % (0.2-1.0) 02/04/17 02:18 Neut # 10.6 x10^3/uL (2.2-4.8) H 02/04/17 02:18 Lymph # 4.6 X10^3/uL (1.3-2.9) H 02/04/17 02:18 [place] # 0.8 x10^3/uL (0.3-0.8) 02/04/17 02:18 Eos # 0.5 x10^3/uL (0.0-0.2) H 02/04/17 02:18 Baso # 0.1 X10^3/uL (0.0-0.1) 02/04/17 02:18 Absolute Nucleated RBC 0.1 /100WBC 02/04/17 02:18 Sodium 138 mmol/L (136-145) 02/04/17 02:18 Corrected Sodium TNP 02/04/17 02:18 Potassium 3.4 mmol/L (3.5-5.1) L 02/04/17 02:18 Chloride 105 mmol/L (98-107) 02/04/17 02:18 Carbon Dioxide 26.5 mmol/L (21-32) 02/04/17 02:18 BUN 22 mg/dL (7-18) H 02/04/17 02:18 Creatinine 1.06 mg/dL (0.55-1.02) H 02/04/17 02:18 Est GFR (MDRD) Af Amer > 60 (>60) 02/04/17 02:18 Est GFR (MDRD) Non-Af 60 (>60) 02/04/17 02:18 Glucose 98 mg/dL (65-99) 02/04/17 02:18 Calcium 8.5 mg/dL (8.5-10.1) 02/04/17 02:18 Corrected Calcium TNP 02/04/17 02:18 Total Bilirubin 0.10 mg/dL (0.2-1.0) L 02/04/17 02:18 AST 18 Units/L (15-37) 02/04/17 02:18 ALT 27 Units/L (12-78) 02/04/17 02:18 Alkaline Phosphatase 77 Units/L (46-116) 02/04/17 02:18 Total Protein 7.0 g/dL (6.4-8.2) 02/04/17 02:18 Albumin 3.9 g/dL (3.4-5.0) 02/04/17 02:18 Globulin 3.1 g/dL (2.5-4.5) 02/04/17 02:18 Albumin/Globulin Ratio 1.3 Ratio (1.1-2.1) 02/04/17 02:18 Specimen Type Clean catch urine 02/04/17 01:25 Urine Color Yellow (YELLOW) 02/04/17 01:25 Urine Appearance Hazy (CLEAR) 02/04/17 01:25 Urine pH 6.0 (5.0 - 8.0) 02/04/17 01:25 Ur Specific [place] 1.015 (1.000-1.030) 02/04/17 01:25 Urine Protein Trace (NEGATIVE) 02/04/17 01:25 Urine Glucose (UA) Negative (NEGATIVE) 02/04/17 01:25 Urine Ketones Negative (NEGATIVE) 02/04/17 01:25 Urine Occult Blood 3+ (NEGATIVE) 02/04/17 01:25 Urine Nitrite Negative (NEGATIVE) 02/04/17 01:25 Urine Bilirubin Negative (NEGATIVE) 02/04/17 01:25 Urine Urobilinogen Normal (NORMAL) 02/04/17 01:25 Ur Leukocyte Esterase Negative (NEGATIVE) 02/04/17 01:25 Urine RBC 15-20 /HPF (NEGATIVE) 02/04/17 01:25 Urine WBC 2-6 /HPF (NEGATIVE) 02/04/17 01:25 Ur Squamous Epith Cells Numerous /HPF (NEGATIVE) 02/04/17 01:25 Urine Bacteria Trace /HPF (NEGATIVE) 02/04/17 01:25 Ur Culture Indicated? No/not indicated 02/04/17 01:25 - XRAY XRAY Interpreted by: Radiologist XRAY Findings: REPORT DISCUSS WITH PATIENT. - Diagnosis Discharge Problem: Flank pain Low back pain Qualifiers: Chronicity: acute Back pain laterality: bilateral Sciatica presence: without sciatica Qualified Code(s): M54.5 - Low back pain - Discharge Plan Disposition: HOME, SELF-CARE Condition: Stable Prescriptions: Acetaminophen with Codeine [Tylenol/Codeine #3 300-30 mg] 1 tab PO Q6H PRN #15 tab PRN Reason: Pain Ciprofloxacin HCl [CIPRO 500 MG TAB *] 500 mg PO Q12H #20 tab - Follow ups/Referrals Follow ups/Referrals: ATA UNDERWOOD [Primary Care Provider] - 02/04/17 YUDI PERALTA [CONSULTING PHYSICIAN] - 02/04/17 - Instructions Instructions: Urinary Tract Infection, Adult, [id number], Back Pain, Adult, [id number], Hematoma Additional Instructions: RETURN TO ED IF WORSE.
[2017-02-04 01:41] LABS: COLOR,URINE YELLOW (YELLOW)
[2017-02-04 01:42] LABS: APPEARANCE,URINE HAZY (CLEAR); GLUCOSE, URINE NEGATIVE (NEGATIVE); KETONES,URINE NEGATIVE (NEGATIVE); PROTEIN,URINE TRACE (NEGATIVE)
[2017-02-04 01:43] LABS: BACTERIA,URINE TRACE /HPF (NEGATIVE); BILIRUBIN,URINE NEGATIVE (NEGATIVE); BLOOD/HEMOGLOBIN,URINE 3+ (NEGATIVE); LEUKOCYTE ESTERASE ,URINE NEGATIVE (NEGATIVE); NITRITES,URINE NEGATIVE (NEGATIVE); RBC,URINE 15-20 /HPF (NEGATIVE); SQUAMOUS EPITHELIAL CELL,UR NUMEROUS /HPF (NEGATIVE); UROBILINOGEN,URINE NORMAL (NORMAL)
[2017-02-04] MEDS ORDERED: ZOFRAN INJ 4 MG VIAL IM ONE (01:56)
[2017-02-04] MEDS ORDERED: DEMEROL INJ IM ONE (01:56)
[2017-02-04] MEDS ORDERED: ZOFRAN INJ 4 MG VIAL ONE (02:00)
[2017-02-04] MEDS ORDERED: DEMEROL INJ ONE (02:00)
[2017-02-04 02:39] LABS: BASOPHILS # (AUTO) 0.1 X10^3/uL (0.0-0.1); BASOPHILS % (AUTO) 0.9 % (0.2-1.0); EOSINOPHILS # (AUTO) 0.5 x10^3/uL (0.0-0.2); EOSINOPHILS % (AUTO) 2.7 % (0.9-2.9); HEMATOCRIT 39.7 % (36.0-47.0); HEMOGLOBIN 13.8 g/dL (12.0-16.0); LYMPHOCYTES # (AUTO) 4.6 X10^3/uL (1.3-2.9); LYMPHOCYTES % (AUTO) 27.9 % (21.0-51.0); MEAN CORPUSCULAR HEMOGLOBIN 30.2 pg (27.0-34.0); MEAN CORPUSCULAR HGB CONC 34.7 g/dL (33.0-35.0); MEAN CORPUSCULAR VOLUME 87.1 fL (80.0-100.0); MONOCYTES # (AUTO) 0.8 x10^3/uL (0.3-0.8); MONOCYTES % (AUTO) 4.7 % (0.0-13.0); NEUTROPHILS # (AUTO) 10.6 x10^3/uL (2.2-4.8); NEUTROPHILS % (AUTO) 63.8 % (42.0-75.0); PLATELET COUNT 288 X10^3/uL (150.0-450.0); RED BLOOD COUNT 4.56 X10^6/uL (3.5-5.4); RED CELL DISTRIBUTION WIDTH 13.4 % (11.6-16.5); WHITE BLOOD COUNT 16.6 X10^3/uL (3.6-10.0)
[2017-02-04 03:02] LABS: ALANINE AMINOTRANSFERASE 27 Units/L (12-78); ALBUMIN 3.9 g/dL (3.4-5.0); ALKALINE PHOSPHATASE 77 Units/L (46-116); ASPARTATE AMINO TRANSFERASE 18 Units/L (15-37); BLOOD UREA NITROGEN 22 mg/dL (7-18); CALCIUM 8.5 mg/dL (8.5-10.1); CARBON DIOXIDE 26.5 mmol/L (21-32); CHLORIDE 105 mmol/L (98-107); CREATININE 1.06 mg/dL (0.55-1.02); SODIUM 138 mmol/L (136-145); eGFR BLACK RACES > 60 (>60); eGFR NON BLACK RACES 60 (>60)
--- NOTE | 2017-02-04 03:28 | CT ---
CT abdomen and pelvis without contrast Indication: Right flank pain, hematuria Comparison: 01/03/2017 Technique: CT images of the abdomen and pelvis were obtained without contrast. Automatic exposure con trol was utilized. Findings: There are discogenic degenerative changes of the lower lumbar spine. No acute skeletal abno rmality is identified. The lung bases are clear. Within the limitations of a noncontrast study, the liver, spleen, stomach, duodenum, pancreas, and ad renals are unremarkable. Mild distal esophageal thickening is similar to prior. Prior cholecystectomy is noted. There is a stable small nonobstructing left upper pole renal stone. No right-sided nephrol ithiasis or hydronephrosis. No ureteral stones identified. No significant bowel thickening or dilatation of the lower GI tract is observed. Normal appendix. [place] brian is absent. The urinary bladder is mostly collapsed, but grossly unremarkable. The rectum is unrem arkable. No free fluid or adenopathy identified. There is mild aortoiliac atherosclerosis, without an eurysm. Impression: 1. No etiology for patient's right flank pain identified. Stable small nonobstructing left upper pole renal stone. 2. Mild distal esophageal thickening, suggestive for esophagitis. Correlation recommended. Consider o utpatient EGD or esophagram for further evaluation. Reported By:
[2017-02-04 04:17] VITALS: BP 121/63
== END 2017-02-04 04:11 | disposition home or self-care (01) ==
LOC: ER 01:00
DX: R10.84 Generalized abdominal pain (principal); M54.5 Low back pain
CPT/HCPCS: 36415; 74176; 80053; 81001; 85025; 96372; 99282; 99283; J2175; J2405

== ENCOUNTER 2017-03-22 17:08 | Emergency (ER) | payer SELFPAY ==
[2017-03-22 17:14] VITALS: BMI 26.6
[2017-03-22] MEDS ORDERED: TORADOL 30 MG VIAL IVP ONE (18:17)
[2017-03-22] MEDS ORDERED: NS 1000 ML 1,000 ML ONE (18:18)
[2017-03-22] MEDS ORDERED: TORADOL 30 MG VIAL ONE (18:18)
--- NOTE | 2017-03-22 18:20 | DR.GENAD ---
HPI - PCP Primary Care Physician: Brandon - Complaint/Symptoms Chief Complaint Doctors Comments: Patient respents with bilateral flank pain. She states that it feels like kidney stones. She has had two lithrotrypsies in the past. Urinary urgency. Chief Complaint:: "I have had kidney stones in the past. I have had a lot of back and flank pain. I have only peed 2 times in 3 days and it is a tea color. I feel like I may have one now. I also feel really weak and dizzy." - Source History Provided: Patient - Mode of Arrival Mode of Arrival: Ambulatory - Timing Onset of Chief Complaint: 03/19/17 PMH - PMH Past Medical History: Yes Past Medical History: Anxiety, Migraines, Headaches, Hypertension, Kidney Stones Past Surgical History: Yes Surgical History: Cholecystectomy, OUTSIDE SALES ACCOUNT EXECUTIVE Surgery, Hysterectomy, Lithotripsy - Family History History of Family Medical Conditions: Yes Family Medical History: Diabetes Mellitus, Cancer, [place], Coronary Artery Disease, Heart Failure, Sudden Cardiac , Hypertension - Social History Does patient currently use any type of tobacco product: Yes Have you used tobacco products in the last 12 months: Yes Type of Tobacco Use: Cigarettes Does any household member use tobacco: No Alcohol Use: None Do you use any recreational Drugs:: No Lives With: Alone Lives Where: Home - infectious screening In the last 2 months have you had wt loss of >10#?: NO Have you had fever, night sweats or hemotysis?: No Have you traveled outside the country in the last 6 months?: No Isolation: Standard ROS - Review of Systems Eyes: No Symptoms Reported ENTM: No Symptoms Reported Respiratoy: No Symptoms Reported Cardiovascular: No Symptoms Reported Gastrointestinal/Abdominal: No Symptoms Reported Genitourinary: No Symptoms Reported Neurological: No Symptoms Reported Musculoskeletal: No Symptoms Reported Integumentary: No Symptoms Reported Hematologic/Lymphatic: No Symptoms Reported Endocrine: No Symptoms Reported Psychiatric: No Symptoms Reported All Other Systems: Reviewed and Negative PE - Vital Signs Vitals: Temperature 97.5 F Pulse Rate 61 Respiratory Rate 21 Blood Pressure [Left Arm] 121/63 Blood Pressure [Right Arm] 120/77 Blood Pressure 110/67 O2 Sat by Pulse Oximetry 98 - General General Appearance: Alert, In No Apparent Distress - Head Head Exam: Normal Inspection, Atraumatic - Eyes Eye exam: Normal Appearance, PERRL, EOMI - ENT ENT Exam: Normal Exam External Ear Exam: Normal External Inspection TM/Canal Exam: Bilateral Normal Nose Exam: Normal Nose Exam Mouth Exam: Normal Inspection Throat Exam: Normal Inspection - Neck Neck Exam: Normal Inspection - Chest Chest Inspection: Normal Inspection - Respiratory Respiratory Exam: Normal Lung Sounds Bilat Respiratory Exam: Bilateral Clear to Auscultation - Cardiovascular Cardiovascular Exam: Regular Rate, Normal Rhythm - Abdominal Exam Abdominal Exam: Normal Inspection Abdominal Tenderness: negative: RUQ, RLQ, LUQ, LLQ, Epigastrium, Suprapubic, Diffuse, Mild, Moderate, Severe, Other - Extremities Extremities Exam: Normal Inspection, Full ROM - Back Back Exam: Normal Inspection, Full ROM - Neurologic Neurological Exam: Alert, Oriented X3, CN II-XII Intact - Psychiatric Psychiatric Exam: Normal Affect - Skin Skin Exam: Warm, Dry, Intact ROR - Labs Reviewed Laboratory Results Reviewed?: Yes (UA: 2+bld,8-12rbc, =[id number]) Laboratory: Specimen Type Clean catch urine 03/22/17 18:07 Urine Color Yellow (YELLOW) 03/22/17 18:07 Urine Appearance Clear (CLEAR) 03/22/17 18:07 Urine pH 6.0 (5.0 - 8.0) 03/22/17 18:07 Ur Specific [place] 1.020 (1.000-1.030) 03/22/17 18:07 Urine Protein 1+ (NEGATIVE) 03/22/17 18:07 Urine Glucose (UA) Negative (NEGATIVE) 03/22/17 18:07 Urine Ketones 1+ (NEGATIVE) 03/22/17 18:07 Urine Occult Blood 2+ (NEGATIVE) 03/22/17 18:07 Urine Nitrite Negative (NEGATIVE) 03/22/17 18:07 Urine Bilirubin Negative (NEGATIVE) 03/22/17 18:07 Urine Urobilinogen Normal (NORMAL) 03/22/17 18:07 Ur Leukocyte Esterase 1+ (NEGATIVE) 03/22/17 18:07 Urine RBC 08 - 12 /HPF (NEGATIVE) 03/22/17 18:07 Urine WBC 01 - 03 /HPF (NEGATIVE) 03/22/17 18:07 Ur Squamous Epith Cells Moderate /HPF (NEGATIVE) 03/22/17 18:07 Amorphous Sediment Trace /HPF (NEGATIVE) 03/22/17 18:07 Urine Bacteria Trace /HPF (NEGATIVE) 03/22/17 18:07 Ur Culture Indicated? No/not indicated 03/22/17 18:07 - XRAY XRAY Interpreted by: Radiologist (Findings: Lung bases are clear. No aggressive osseous lesions are identified. The gallbladder is surgically absent. Within the limits of a noncontrast exam, the liver,spellen,pancreas and adrenals are unremarkable. There is a stable punctate nonobstructing stone within the upper left [place]. No additional radiopaque urinary tract stones are identified and therre is no left or right hydroureteronephrosis. Mild thickening of the visualized distal esophagus is again noted and unchanged.(comparison 02/06/17) . The remaining GI tract, including the appendix is normal without evidence of inflammation or obstruction. There is mild calcification of the aortoiliac system without aneurysm. The urinary bladder is normal. The patient is post hysterectomy. No free air, free fluid or lymophadenopathy is identified. Impression: No acute abnormality identified to explain patient's right flank pain. Stable nonobstructing left nephrolithiasis. Unchanged mild thickening of the distal esophagus, suggestive for esophagitis. Again ,consider EGD or esophagram for further evaluation, if clinically warrented.) - Diagnosis Discharge Problem: Nonobstructing left nephrolithiasis, Esophagitis - Discharge Plan Condition: Stable - Follow ups/Referrals Follow ups/Referrals: ATA UNDERWOOD [Primary Care Provider] - 3 days - Instructions
[2017-03-22 18:21] LABS: BILIRUBIN,URINE NEGATIVE (NEGATIVE); BLOOD/HEMOGLOBIN,URINE 2+ (NEGATIVE); GLUCOSE, URINE NEGATIVE (NEGATIVE); KETONES,URINE 1+ (NEGATIVE); LEUKOCYTE ESTERASE ,URINE 1+ (NEGATIVE); NITRITES,URINE NEGATIVE (NEGATIVE); PROTEIN,URINE 1+ (NEGATIVE); UROBILINOGEN,URINE NORMAL (NORMAL)
[2017-03-22 18:39] LABS: AMORPHOUS SEDIMENT,UR TRACE /HPF (NEGATIVE); APPEARANCE,URINE CLEAR (CLEAR); BACTERIA,URINE TRACE /HPF (NEGATIVE); COLOR,URINE YELLOW (YELLOW); SQUAMOUS EPITHELIAL CELL,UR MODERATE /HPF (NEGATIVE)
[2017-03-22] MEDS ORDERED: ZOFRAN INJ 4 MG VIAL IVP ONE (18:45)
[2017-03-22] MEDS ORDERED: ZOFRAN INJ 4 MG VIAL ONE (18:46)
[2017-03-22] MEDS ORDERED: NS 1000 ML 1,000 ML IV SCH (19:00)
--- NOTE | 2017-03-22 19:15 | CT ---
CT abdomen and pelvis without contrast Indication: Flank pain Technique: Helical CT images of the abdomen and pelvis were obtained without IV contrast. Reformatted images in the coronal and sagittal planes were also generated for review. Comparison: 02/04/2017 Findings: Lung bases are clear. No aggressive osseous lesions are identified. The gallbladder is surgically absent. Within the limits of a noncontrast exam, the liver, spleen, trejo creas and adrenals are unremarkable. There is a stable punctate nonobstructing stone within the upper left kidney. No additional radiopaque urinary tract stones are identified and there is no left or ri ght hydroureteronephrosis. Mild thickening of the visualized distal esophagus is again noted and unchanged. The remaining GI tra ct, including the appendix is normal without evidence of inflammation or obstruction. There is mild c alcification of the aortoiliac system without aneurysm. The urinary bladder is normal. The patient is post hysterectomy. No free air, free fluid or lymphadenopathy is identified. Impression: No acute abnormality identified to explain patient's right flank pain. Stable nonobstructing left nephrolithiasis. Unchanged mild thickening of the distal esophagus, suggestive for esophagitis. Again, consider EGD or esophagram for further evaluation, if clinically warranted. Reported By:
[2017-03-22] MEDS ORDERED: TORADOL TAB PO ONE ×2 (19:41→19:42)
[2017-03-22 19:48] VITALS: BP 105/68
== END 2017-03-22 19:48 | disposition home or self-care (01) ==
LOC: ER 17:18
DX: N20.0 Calculus of kidney (principal); K20.9 Esophagitis, unspecified
CPT/HCPCS: 74176; 81001; 96365; 96367; 96374; 96375; 99282; 99283; A4222; J1885; J2405